=== PATIENT | male | born 1945 | race African-American/Black ===

== ENCOUNTER 2019-02-19 16:22 | Emergency (ER) | payer OTHER, MEDICARE ==
--- NOTE | 2019-02-19 17:42 | ER Document Report ---
ED Medical Screen (RME) - General Chief Complaint: Eye Pain Stated Complaint: EYE PAIN Time Seen by Provider: 02/19/19 17:36 Primary Care Provider: KHALIF EVANS MD [Primary Care Provider] - Follow up as needed Mode of Arrival: Ambulatory Information source: Patient Notes: 73-year-old male presented to ED for complaint of pain to the left eye since last week. He states he went to his primary care doctor about 4 PM and he has been sent from place to place and could not get into an manager of financial reporting today so the primary care doctor sent him over to the emergency room. He states he did attempt to go to the [facility] emergency room but they stated since he was over 65 available staff. I have greeted and performed a rapid initial assessment of this patient. A comprehensive ED assessment and evaluation of the patient, analysis of test results and completion of medical decision making process will be conducted by an additional ED providers. - Related Data Allergies/Adverse Reactions: No Known Allergies Allergy (Unverified 04/25/12 11:17) Past Medical History - Past Medical History Cardiac Medical History: Reports: Hx Hypertension - Immunizations Hx Diphtheria, Pertussis, Tetanus Vaccination: Yes Physical Exam - Vital signs Vitals: Temp Pulse Resp BP Pulse Ox 98.8 F 76 16 154/67 H 100 02/19/19 16:33 02/19/19 16:33 02/19/19 16:33 02/19/19 16:33 02/19/19 16:33 Course - Vital Signs Vital signs: Temp Pulse Resp BP Pulse Ox 98.8 F 76 16 154/67 H 100 02/19/19 16:33 02/19/19 16:33 02/19/19 16:33 02/19/19 16:33 02/19/19 16:33 Doctor's Discharge - Discharge Referrals: KHALIF EVANS MD [Primary Care Provider] - Follow up as needed
[2019-02-19] MEDS ORDERED: POLYMYXIN B SULFATE/TMP OPH SOLN (10 ML/ER DISP) OS PRN (21:36)
--- NOTE | 2019-02-19 21:37 | ER Document Report ---
ED Eye Complaint - General Chief Complaint: Eye Pain Stated Complaint: EYE PAIN Time Seen by Provider: 02/19/19 17:36 Primary Care Provider: REYNA RODRIGUEZ DO [ACTIVE STAFF] - Follow up tomorrow Mode of Arrival: Ambulatory Notes: Patient is a 73-year-old male that comes to the emergency department for chief complaint of left eye irritation. He states is been going on for 1 week, he states that it started after he started doing yard work, he states he wonders if something flew into his eye but he did not remember any event that this happened. He does report irritation and a slight foreign body sensation. He denies visual loss, discolored discharge, headache, or severe pain is. He wears glasses occasionally but not contacts. His tetanus is up-to-date. He denies any other complaints. Patient does state [facility] be evaluated in [facility] department and he went to [facility] but they did not have an dental lab technician so he left. TRAVEL OUTSIDE OF THE [place] IN LAST 30 DAYS: No - Related Data Allergies/Adverse Reactions: No Known Allergies Allergy (Unverified 04/25/12 11:17) Past Medical History - General Information source: Patient - Social History Smoking Status: Never Smoker Frequency of alcohol use: None Drug Abuse: None Lives with: Family Family History: Reviewed & Not Pertinent Patient has suicidal ideation: No Patient has homicidal ideation: No - Past Medical History Cardiac Medical History: Reports: Hx Hypertension Past Surgical History: Reports: Hx Orthopedic Surgery - william legs/right arm - Immunizations Hx Diphtheria, Pertussis, Tetanus Vaccination: Yes Review of Systems - Review of Systems Constitutional: No symptoms reported EENT: See HPI Cardiovascular: No symptoms reported Respiratory: No symptoms reported Gastrointestinal: No symptoms reported Genitourinary: No symptoms reported Male Genitourinary: No symptoms reported Musculoskeletal: No symptoms reported Skin: No symptoms reported Hematologic/Lymphatic: No symptoms reported Neurological/Psychological: No symptoms reported Physical Exam - Vital signs Vitals: Temp Pulse Resp BP Pulse Ox 98.8 F 76 16 154/67 H 100 02/19/19 16:33 02/19/19 16:33 02/19/19 16:33 02/19/19 16:33 02/19/19 16:33 - Notes Notes: GENERAL: Alert, interacts well. No acute distress. HEAD: Normocephalic, atraumatic. EYES: Pupils equal, round, and reactive to light. Extraocular movements intact. Sclera is injected on the left side but not on the right. Eyelids nontender and not swollen. No discharge. No superficial foreign body, no fluorescein uptake, negative Ratna sign. Pressures of 21 in the left eye. ENT: Oral mucosa moist, tongue midline. Oropharynx unremarkable. Airway patent. Nares patent, no nasal septal hematoma, TM's intact. NECK: Full range of motion. Supple. Trachea midline. LUNGS: Clear to auscultation bilaterally, no wheezes, rales, or rhonchi. No respiratory distress. HEART: Regular rate and rhythm. No murmur ABDOMEN: Soft, non-tender. Non-distended. Bowel sounds present in all 4 quadrants. GENITOURINARY: Deferred EXTREMITIES: Moves all 4 extremities spontaneously. No edema, normal radial and dorsalis pedis pulses bilaterally. No cyanosis. BACK: no cervical, thoracic, lumbar midline tenderness. No saddle anesthesia, normal distal neurovascular exam. Moves all extremities in full range of motion. NEUROLOGICAL: Alert and oriented x3. Normal speech. Cranial nerves II through XII grossly intact. PSYCH: Normal affect, normal mood. SKIN: Warm, dry, normal turgor. No rashes or lesions noted. - HEENT Visual acuity- Right eye: 20/30 Visual acuity- Left eye: 20/50 Visual acuity- Both eyes: 20/30 Corrective lenses worn: No Course - Re-evaluation Re-evalutation: Patient has the appearance of conjunctivitis, possibly allergic even, however no other concerning findings are noted. Patient is very concerned about being referred to and seen by an dental lab technician, he requests I contact them. I did call and speak with Dr. Rodriguez, ophthalmology on-call, I discussed patient's presentation, full examination, and request. He states that patient can call in the morning and he will see the patient in the office for additional management. Patient and significant other state appreciation and agreement. - Vital Signs Vital signs: Temp Pulse Resp BP Pulse Ox 98.3 F 63 18 135/73 H 96 02/19/19 21:55 02/19/19 21:55 02/19/19 21:55 02/19/19 21:55 02/19/19 21:55 Discharge - Discharge Clinical Impression: Irritation of left eye Conjunctivitis Qualifiers: Conjunctivitis type: unspecified Laterality: left Qualified Code(s): H10.9 - Unspecified conjunctivitis Condition: Stable Disposition: HOME, SELF-CARE Additional Instructions: Your eye examination is most consistent with conjunctivitis at this time, recommendation is to take the Polytrim eyedrops 1 drop 4 times a day for the next 7 [address] I spoke with Dr. Rodriguez, our dental lab technician on-call. Please call the listed referral tomorrow and they will set up your close follow-up. Return for any concerning symptoms including developing pain or swelling, fever, loss of vision, or any other concerning or worsening symptoms. Referrals: REYNA RODRIGUEZ DO [ACTIVE STAFF] - Follow up tomorrow
[2019-02-19 22:00] VITALS: BP 135/73
== END 2019-02-19 22:08 | disposition home or self-care (01) ==
LOC: ER 16:22
DX: H10.9 Unspecified conjunctivitis (principal); I10 Essential (primary) hypertension
CPT/HCPCS: 99283; J3490

== ENCOUNTER → 2019-11-06 | Outpatient (CLI) | payer MEDICARE, OTHER ==
--- NOTE | 2019-11-06 12:45 | RADIOLOGY REPORT (SQ) ---
EXAM DESCRIPTION: U/S RETROPERITON (RENAL/AORTA) IMAGES COMPLETED DATE/TIME: 11/06/2019 9:47 am REASON FOR STUDY: ABN KIDNEY FUNCTION R94.4 ABNORMAL RESULTS OF KIDNEY FUNCTION STUDIES COMPARISON: None. TECHNIQUE: Dynamic and static grayscale images acquired of the kidneys and bladder and recorded on P ACS. Additional selected color Doppler and spectral images recorded. LIMITATIONS: None. FINDINGS: RIGHT KIDNEY: Normal size, 10.2 cm. Increased echogenicity. No solid or suspicious masses . No hydronephrosis. No calcifications. LEFT KIDNEY: Normal size, 10.2 cm. Increased echogenicity. Complex mass measures 4.1 x 3.6 x 3.4 m m in the mid renal cortex. No hydronephrosis. No calcifications. BLADDER: Bilateral ureteral jets. No masses. OTHER FINDINGS: No other significant finding. IMPRESSION: 1. Increased echogenicity in the kidneys may suggest medical renal disease. 2. Complex 4 cm mass in the left kidney. Consider CT with contrast. Consider MRI. TECHNICAL DOCUMENTATION: JOB ID: [id number] 2010 [employer]- All Rights Reserved Reading location - IP/workstation name: [email or web address]
== END ==
LOC: RAD 09:10
PROVIDERS: ATTEND Internal Medicine
DX: N28.89 Other specified disorders of kidney and ureter (principal); R94.4 Abnormal results of kidney function studies
CPT/HCPCS: 76770

== ENCOUNTER → 2020-02-12 | Outpatient (CLI) | payer MEDICARE, OTHER ==
--- NOTE | 2020-02-12 11:59 | RADIOLOGY REPORT (SQ) ---
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 No oral contrast. Images reviewed with lung, soft tissue, and bone windows. Reconstructed coronal and sagittal MPR images reviewed. Delayed images for evaluation of the urinary system also acquired. All images stored on PACS. All CT scanners at this facility use dose modulation, iterative reconstruction, and/or weight based d osing when appropriate to reduce radiation dose to as low as reasonably achievable (ALARA). [facility]: Dose Right [facility]: CareDose [facility]: Dose Right [facility]: Teradose 4D [facility]: [employer] CONTRAST TYPE AND DOSE: contrast/concentration: Isovue 300.00 mmol/ml; Total Contrast Delivered: 98. 0 ml; Total Saline Delivered: 40.0 ml RENAL FUNCTION: Creatinine 1.7 RADIATION DOSE: CT Rad equipment meets quality standard of care and radiation dose reduction techniq ues were employed. CTDIvol: 11.8 - 11.9 mGy. DLP: 1191 mGy-cm.. LIMITATIONS: None. FINDINGS: LOWER CHEST: No significant findings. No nodules or infiltrates. LIVER: 2 small approximate 1 cm right hepatic cyst. No suspicious findings. SPLEEN: Normal size. No focal lesions. PANCREAS: No masses. No significant calcifications. No adjacent inflammation or peripancreatic fluid collections. Pancreatic duct not dilated. GALLBLADDER: No identified stones by CT criteria. No inflammatory changes to suggest cholecystitis. ADRENAL GLANDS: No significant masses or asymmetry. RIGHT KIDNEY AND URETER: No solid masses. No significant calcifications. No hydronephrosis or hyd roureter. LEFT KIDNEY AND URETER: No solid masses. Findings on ultrasound are consistent with dromedary hump. No significant calcifications. No hydronephrosis or hydroureter. AORTA AND VESSELS: No aneurysm. No dissection. Renal arteries, SMA, celiac without stenosis. RETROPERITONEUM: No retroperitoneal adenopathy, hemorrhage or masses. BOWEL AND PERITONEAL CAVITY: No masses or inflammatory changes. No free fluid or peritoneal masses. APPENDIX: Normal. PELVIS: No mass. No free fluid. Normal bladder. ABDOMINAL WALL: No masses. No hernias. BONES: No significant or acute findings. OTHER: No other significant finding. IMPRESSION: No acute findings. Dromedary hump on the left kidney accounting for ultrasound findings . TECHNICAL DOCUMENTATION: JOB ID: [id number] Quality ID # [id number]: Final reports with documentation of one or more dose reduction techniques (e.g., Au tomated exposure control, adjustment of the mA and/or kV according to patient size, use of iterative reconstruction technique) 2010 [employer]- All Rights Reserved Reading location - IP/workstation name: [email or web address]
== END ==
LOC: RAD 11:09
PROVIDERS: ATTEND Internal Medicine
DX: D41.01 Neoplasm of uncertain behavior of right kidney (principal)
CPT/HCPCS: 74177